=== PATIENT | female | born 1965 | race Caucasian/White ===

== ENCOUNTER 2017-12-09 05:35 | Day surgery (SDC) | payer BC ==
[~2017-12-09] VITALS: Ht 170.2 cm; Wt 80.7 kg
[2017-12-09] MEDS ORDERED: CEFAZOLIN 1 GM IVPB PREMIX 50 ML IV ONE (07:00)
[2017-12-09] MEDS ORDERED: SEVOFLURANE 15 MIN GAS INH ONE (08:00)
[2017-12-09] MEDS ORDERED: fentaNYL CITRATE/PF 100 MCG/2 ML AMP IVP ONE (08:00)
[2017-12-09] MEDS ORDERED: MIVACURIUM CHLORIDE 20 MG/10 ML VIAL (MIVACRON) INJ ONE (08:00)
[2017-12-09] MEDS ORDERED: PROPOFOL 200MG/ 20ML VIAL (DIPRIVAN) IV ONE (08:00)
[2017-12-09] MEDS ORDERED: ONDANSETRON HCL 4 MG/2 ML VIAL IVP ONE (08:00)
[2017-12-09] MEDS ORDERED: KETOROLAC TROMETHAMINE 30 MG VIAL IVP ONE (08:00)
[2017-12-09] MEDS ORDERED: MIDAZOLAM HCL 5 MG/5 ML VIAL IVP ONE (08:00)
[2017-12-09] MEDS ORDERED: LR 1,000 ML IV SCH (08:28)
[2017-12-09] MEDS ORDERED: MORPHINE 4 MG/ML INJ. SYRINGE IVP PRN ×3 (08:30)
[2017-12-09] MEDS ORDERED: METOCLOPRAMIDE HCL 10 MG/2 ML VIAL IVP PRN (08:30)
[2017-12-09] MEDS ORDERED: ONDANSETRON HCL 4 MG/2 ML VIAL IVP PRN (08:45)
[2017-12-09] MEDS ORDERED: HYDROcodone/ACETAMIN 5-325 MG TAB (NORCO/ VICODIN) PO PRN (08:45)
[2017-12-09] MEDS ORDERED: OXYCODONE/ACETAMINOPHEN 5-325 TABLET PO PRN ×2 (08:45)
[2017-12-09 09:38] VITALS: BP_SYST 119
== END 2017-12-09 10:10 | disposition home or self-care (01) ==
LOC: SDS 05:35 → SMU 05:35 → SDS 10:10
PROVIDERS: ATTEND Specialist
DX: N84.0 Polyp of corpus uteri (principal); E03.9 Hypothyroidism, unspecified; Z79.899 Other long term (current) drug therapy; D50.9 Iron deficiency anemia, unspecified; Z98.890 Other specified postprocedural states; E66.3 Overweight
CPT/HCPCS: 58563; 88305; 93005; J0690; J1885; J2250; J2405; J2704; J3010

== ENCOUNTER 2018-04-08 05:55 | Day surgery (SDC) | payer BC ==
[~2018-04-08] VITALS: Ht 182.9 cm; Wt 83.9 kg
[2018-04-08] MEDS ORDERED: CEFAZOLIN SOD 1 GM/ ISO 50 ML PREMIX IV ONE (07:00)
[2018-04-08] MEDS ORDERED: LR 1,000 ML IV SCH (09:19)
[2018-04-08] MEDS ORDERED: METOCLOPRAMIDE HCL 10 MG/2 ML VIAL IVP PRN (09:30)
[2018-04-08] MEDS ORDERED: MORPHINE 4 MG/ML INJ. SYRINGE IVP PRN ×3 (09:30)
[2018-04-08] MEDS ORDERED: KETOROLAC TROMETHAMINE 30 MG VIAL IVP ONE ×2 (10:05→13:30)
[2018-04-08] MEDS ORDERED: GLYCOPYRROLATE 0.2 MG/ML VIAL IJ ONE (10:05)
[2018-04-08] MEDS ORDERED: ROCURONIUM BROMIDE 10 MG/ML (ZEMURON) IV ONE (10:05)
[2018-04-08] MEDS ORDERED: CEFAZOLIN 1 GM IVPB PREMIX 50 ML IV ONE (10:05)
[2018-04-08] MEDS ORDERED: MIDAZOLAM HCL 5 MG/ML VIAL (VERSED) IV ONE (10:05)
[2018-04-08] MEDS ORDERED: NS 1000 ML BAG IV ONE (10:05)
[2018-04-08] MEDS ORDERED: fentaNYL CITRATE 250 MCG/5 ML AMP IV ONE (10:05)
[2018-04-08] MEDS ORDERED: NS IRRIG SOLN 1000 ML IR ONE (10:05)
[2018-04-08] MEDS ORDERED: PHENYLEPHRINE HCL 10 MG/ML VIAL (NEOSYNEPHRINE) IV ONE (10:05)
[2018-04-08] MEDS ORDERED: SEVOFLURANE 15 MIN GAS INH ONE (10:05)
[2018-04-08] MEDS ORDERED: PROPOFOL 200MG/ 20ML VIAL (DIPRIVAN) IV ONE (10:05)
[2018-04-08] MEDS ORDERED: NEOSTIGMINE METHYLSULFATE 1 MG/ML, 10 ML VIAL IVP ONE (10:05)
[2018-04-08] MEDS ORDERED: ONDANSETRON HCL 4 MG/2 ML VIAL IVP ONE (10:05)
[2018-04-08] MEDS ORDERED: DEXTROSE 50% JECT 50 ML DISP.SYRIN IVP ONE (10:05)
[2018-04-08] MEDS ORDERED: BUPIVACAINE /PF 0.25% 30 ML VIAL INJ ONE (10:05)
[2018-04-08] MEDS ORDERED: ATROPINE SULFATE 0.4 MG/ML VIAL IVP ONE (10:05)
[2018-04-08] MEDS ORDERED: FUROSEMIDE 20 MG/2 ML VIAL IVP ONE (10:05)
[2018-04-08] MEDS ORDERED: LR 1,000 ML IV.SOLN IV ONE (10:05)
[2018-04-08] MEDS: MORPHINE 4 MG/ML INJ. SYRINGE ONE ×2 (10:09→10:16)
[2018-04-08] MEDS ORDERED: HYDROmorphone 2 MG/ML VIAL ONE (10:27)
[2018-04-08] MEDS ORDERED: HYDROmorphone 2 MG/ML VIAL IVP ONE (10:30)
[2018-04-08] MEDS ORDERED: OXYCODONE/ACETAMINOPHEN 5-325 TABLET PO PRN (11:30)
[2018-04-08] MEDS ORDERED: MORPHINE SULFATE 10 MG/ML VIAL IVP PRN (11:30)
[2018-04-08] MEDS ORDERED: HYDROcodone/ACETAMIN 5-325 MG TAB (NORCO/ VICODIN) PO PRN (11:30)
[2018-04-08] MEDS ORDERED: ONDANSETRON HCL 4 MG/2 ML VIAL IVP PRN (11:30)
[2018-04-08 13:00] VITALS: BP_SYST 109
[2018-04-08] MEDS ORDERED: SIMETHICONE 80 MG TAB.CHEW PO SCH (13:00)
[2018-04-08] MEDS ORDERED: KETOROLAC TROMETHAMINE 30 MG VIAL ONE (13:12)
== END 2018-04-08 16:20 | disposition home or self-care (01) ==
LOC: SMU 05:55 → SDS 05:55
PROVIDERS: ATTEND Specialist
DX: N80.0 Endometriosis of uterus (principal); D64.9 Anemia, unspecified; E03.9 Hypothyroidism, unspecified; E66.3 Overweight; Z79.899 Other long term (current) drug therapy
CPT/HCPCS: 58552; 88307; C1727; J0461; J0690; J1170; J1885; J1940; J2250; J2270; J2370; J2405; J2704; J2710; J3010; J3490 ×2; J7030; J7120

== ENCOUNTER 2023-09-10 07:55 | Day surgery (SDC) | payer BC ==
[2023-09-08 11:12] LABS: BASOPHILS # (AUTO) 0.1 K/uL (0.0-0.2); BASOPHILS % (AUTO) 0.9 % (0.0-2.0); EOSINOPHILS # (AUTO) 0.2 K/uL (0.0-0.4); EOSINOPHILS % (AUTO) 3.3 % (0.0-4.0); HEMATOCRIT 43.9 % (36-48); HEMOGLOBIN 14.3 g/dL (12.0-16.0); LYMPHOCYTES # (AUTO) 2.1 K/uL (1.0-5.5); LYMPHOCYTES % (AUTO) 28.8 % (20.5-51.5); MEAN CORPUSCULAR HEMOGLOBIN 29 pg (27-31); MEAN CORPUSCULAR HGB CONC 33 % (32-36); MEAN CORPUSCULAR VOLUME 88 fL (79.0-98.0); MONOCYTES # (AUTO) 0.5 K/uL (0.0-1.0); MONOCYTES % (AUTO) 6.6 % (1.7-9.3); NEUTROPHILS # (AUTO) 4.4 K/uL (1.8-7.7); NEUTROPHILS % (AUTO) 60.4 % (40.0-70.0); PLATELET COUNT (AUTO) 289 K/uL (130-430); RED BLOOD CELL COUNT(AUTO) 4.99 MIL/uL (4.2-6.2); RED CELL DISTRIBUTION WIDTH 13.1 % (9.0-15.0); WHITE BLOOD COUNT (AUTO) 7.3 K/uL (4.8-10.8)
[2023-09-08 11:31] LABS: ALBUMIN 3.8 g/dL (3.4-4.8); CALCIUM 9.4 mg/dL (8.4-11.0); CREATININE 0.77 mg/dL (0.55-1.30); POTASSIUM 3.4 mmol/L (3.5-5.1); TOTAL BILIRUBIN 0.3 mg/dL (0.0-1.0); TOTAL PROTEIN, SERUM 7.2 g/dL (6.4-8.3)
[2023-09-08 11:41] LABS: CLARITY/URINE CLEAR (CLEAR); COLOR,URINE YELLOW (YELLOW); PH,URINE 5.5 (5.0-8.0); PROTEIN URINE NEGATIVE (NEGATIVE)
[2023-09-08 11:42] LABS: BILIRUBIN,URINE NEGATIVE (NEGATIVE); BLOOD, URINE TRACE (NEGATIVE); GLUCOSE,URINE NEGATIVE (NEGATIVE); KETONES,URINE NEGATIVE (NEGATIVE); LEUKOCYTE ESTERASE ,URINE NEGATIVE (NEGATIVE); NITRITE, URINE NEGATIVE (NEGATIVE); UROBILINOGEN,URINE 0.2 (0.2-1.0)
[2023-09-08 11:49] LABS: BACTERIA,URINE RARE /HPF (None Seen); WBC,URINE 0-3 /HPF (0-3)
[~2023-09-10] VITALS: Ht 170.2 cm; Wt 79.4 kg
[~2023-09-10 07:55] MED LIST: ceFAZolin SODIUM 2 GM in D5W 100 ML IV ONE
[2023-09-10] MEDS ORDERED: ePHEDrine sulfate 50 MG/ML VIAL ONE (07:59)
[2023-09-10] MEDS ORDERED: ONDANSETRON HCL 4 MG/2 ML VIAL ONE (07:59)
[2023-09-10] MEDS ORDERED: PROPOFOL 200MG/ 20ML VIAL (DIPRIVAN) IV ONE ×2 (07:59→10:09)
[2023-09-10] MEDS ORDERED: WATER FOR IRRIGATION,STERILE 1,000 ML IRRIG.SOLN IR ONE ×2 (07:59→10:09)
[2023-09-10] MEDS ORDERED: LIDOCAINE/EPI 1% 1:100000 20 ML VIAL ONE (07:59)
[2023-09-10] MEDS ORDERED: SEVOFLURANE 15 MIN GAS INH ONE ×2 (07:59→10:09)
[2023-09-10] MEDS ORDERED: NS 1000 ML IV.SOLN IV ONE ×2 (07:59→10:09)
[2023-09-10] MEDS ORDERED: FUROSEMIDE 20 MG/2 ML VIAL ONE (07:59)
[2023-09-10] MEDS ORDERED: KETOROLAC TROMETHAMINE 30 MG VIAL ONE (10:09)
[2023-09-10] MEDS ORDERED: DEXAMETHASONE SOD PHOSPHATE 4 MG/ML VIAL ONE (10:09)
[2023-09-10] MEDS ORDERED: ROCURONIUM BROMIDE 10 MG/ML (ZEMURON) ONE (10:09)
[2023-09-10] MEDS ORDERED: fentaNYL CITRATE/PF 100 MCG/2 ML AMP ONE (10:09)
[2023-09-10] MEDS ORDERED: SUGAMMADEX SODIUM 200 MG/2 ML VIAL IV ONE (10:09)
[2023-09-10] MEDS ORDERED: METOCLOPRAMIDE HCL 10 MG/2 ML VIAL ONE (10:09)
[2023-09-10] MEDS ORDERED: LIDOCAINE 2%, 20 ML MDV ONE (10:09)
[2023-09-10] MEDS ORDERED: BUPIVACAINE /PF 0.5% 30 ML VIAL ONE (10:09)
[2023-09-10] MEDS ORDERED: MIDAZOLAM HCL 2 MG/2 ML VIAL (VERSED) ONE (10:10)
[2023-09-10] MEDS ORDERED: ACETAMINOPHEN I.V. 1000 MG 100 ML IV ONE (10:10)
[2023-09-10 11:37] VITALS: O2SAT 99
[2023-09-10] MEDS ORDERED: OXYCODONE/ACETAMINOPHEN 5-325 TABLET PO PRN ×2 (11:45)
[2023-09-10] MEDS ORDERED: HYDROcodone/ACETAMIN 5-325 MG TAB (NORCO/ VICODIN) PO PRN (11:45)
[2023-09-10] MEDS ORDERED: ONDANSETRON HCL 4 MG/2 ML VIAL IVP PRN (11:45)
[2023-09-10 13:50] VITALS: BP_SYST 115; PULSE 75; RESP 16
== END 2023-09-10 14:50 | disposition home or self-care (01) ==
LOC: SDS 07:55 → SMU 07:55 → SDS 14:50
PROVIDERS: ATTEND Specialist
DX: N83.202 Unspecified ovarian cyst, left side (principal); N95.1 Menopausal and female climacteric states; E03.9 Hypothyroidism, unspecified; Z80.41 Family history of malignant neoplasm of ovary; Z79.899 Other long term (current) drug therapy
CPT/HCPCS: 81000; 80053; 81001; 84702; 85025; 87081; 36415; 93005; 71046; 58661; 88305; J3490 ×2; J1100; J1940; J1885; J2001; J2765; J3465; J2405; J2704; J3010; J7060; J7030; C1727; J0131; 81015